=== PATIENT | male | born 1990 | race Caucasian/White ===

== ENCOUNTER 2017-03-17 09:25 | Inpatient (IN) | payer SELFPAY ==
--- NOTE | ~2017-03-17 | DS ---
Discharge Summary [facility] [address] [place]. [address] NAME: STEVE KERN : 89 STATUS : DIS IN PAT#: [id number] AGE: 27 ADM/REG DATE : 03/17/17 MR#: [id number] REPORT SERV DATE: 03/19/17 DICTATED BY: MARISELA LANDRUM DATE: 03/19/17 REPORT STATUS : Draft TRANSCRIBED BY: MODL DATE: 03/19/17 ADMISSION DATE: 03/17/2017 DISCHARGE DATE: 03/19/2017 TOURING PRODUCTION MANAGER: Shahid Ware D.D.S., sky cap. DISCHARGE DIAGNOSES: 1. Periodontal abscess with right-side facial cellulitis and dental caries. 2. Cigarette smoker. 3. Previous cholecystectomy. HISTORY: This patient has had approximately three weeks of gradually worsening right-sided mandibular periodontal pain and has had a number of visits to the emergency room near his home. He reportedly was given some oral antibiotics and occasional dose of IV antibiotics in the emergency room. He worsened and had a white count of 24,000, with significant swelling, and had a CT at the outside facility suggesting abscess, so was referred to our sky cap Team with Dr. Carnes accepting the patient. He was transferred here to our inpatient service. He was placed on antibiotics with Unasyn 3 g every 6 hours, Oral surgery Dr. Shahid Ware took him to the operating room on 03/17/2017, where he did an extraoral incision and drainage and extraction of teeth 28, 29, 30, 31, and 32. The patient's postop course was uncomplicated. He had reduced swelling and reduced pain. Dr. Ware had a drain in place and took it out on 03/19/2017, and stated he felt the patient could go home, and follow up with him in the office on the Saturday after discharge. The patient is eating soft food. He is ambulatory. No nausea. No vomiting. No fever. I told the patient and his that if he has recurrent pain like he did before especially with increased swelling, he should go to the emergency room again or call Dr. Ware, same if he had fever 101 or higher, and if he had a rash to go to the ER, or if he had severe diarrhea. The patient requests a work note which I provided indicating the days he was here and also indicating that he could start his new job on 03/26/2017. DISCHARGE MEDICATIONS: Nicotine patch 14 mg size [id number], Tylenol 650 q.4 hours p.r.n. mild pain, Percocet 10/325 q.i.d. p.r.n., intense pain #25 no refill, Augmentin 875 mg p.o. b.i.d. for five days take with meals, I spent 38 minutes today with the patient and his family in discharge plan. DICTATED BY: Marisela Landrum M.D. RSG/ELLIE Discharge Summary [address] [address] NAME: STEVE KERN : 89 STATUS : DIS IN PAT#: [id number] AGE: 27 ADM/REG DATE : 03/17/17 MR#: [id number] REPORT SERV DATE: 03/19/17 DICTATED BY: MARISELA LANDRUM DATE: 03/19/17 REPORT STATUS : Draft TRANSCRIBED BY: ELLIE DATE: 03/19/17 Marisela Landrum M.D. / [id number] CC: Stone Jain D.D.S.
--- NOTE | ~2017-03-17 | OP ---
Record Of Operation [facility] [address] [place]. [address] NAME: STEVE KERN : 89 STATUS : ADM IN [facility]#: [id number] AGE: 27 ADM/REG DATE : 03/17/17 MR#: [id number] REPORT SERV DATE: 03/17/17 DICTATED BY: SHAHID GARRIDO DATE: 03/17/17 REPORT STATUS : Draft TRANSCRIBED BY: MODL DATE: 03/17/17 DATE OF PROCEDURE: 03/17/2017 OPERATION COMPLETED: Extraoral incision and drainage and extraction of teeth #28, 29, 30, 31, and 32. PREOPERATIVE DIAGNOSIS: Cellulitis and abscess of face with secondary diagnosis of submandibular space abscess and dental caries. POSTOPERATIVE DIAGNOSIS: Cellulitis and abscess of face with secondary diagnosis of submandibular space abscess and dental caries. ANESTHESIA: General anesthesia via oral endotracheal intubation. DESCRIPTION OF PROCEDURE: The patient was taken to the operating room, where successful general anesthesia was induced via oral endotracheal intubation. The patient was prepped and draped in the usual manner for a combination intraoral and extraoral procedure. We initiated the procedure by placing a posterior pharyngeal pack and injecting the intraoral surgical sites using 0.5% Marcaine with epinephrine. This was to kitchen help handyman in hemostasis and postoperative discomfort. We first took a #9 [place] periosteal elevator and reflected a full- thickness mucoperiosteal flap surrounding tooth #28, 29, 30, 31, and 32. These teeth were then removed using dental elevators and forceps in the usual manner. There was spontaneous drainage of pus from the posterior aspect of the socket of tooth #32. We then went extraoral and made a 1 cm incision through the skin. Blunt dissection was used to track up to the submasseteric and submandibular areas where there were copious amounts of pus. We further explored the area and evacuated all the purulent matter. We then placed a quarter- inch [place] drain extending through the incision up to the site of the abscess. The drain was sutured using a 3-0 nylon suture. We then went intraorally and sutured the mucosa using 3-0 plain gut suture in an interrupted fashion. We then irrigated and rinsed the intraoral cavity out. We suctioned the intraoral cavity and removed the pharyngeal pack. The posterior pharynx was noted to be free of debris. We placed a 4 x 18 gauze in the right cheek to kitchen help handyman with hemostasis. We dressed the neck wound. The patient was then awakened, extubated, and taken to the recovery room in satisfactory condition. SUZETTE Shahid Garrido D.D.S. / [id number] CC: Brett Monson M.D.
--- NOTE | ~2017-03-17 | HP ---
History And Physical [place] [address] [facility] [place]. [address] NAME: STEVE KERN : 89 STATUS : ADM IN [facility]#: [id number] AGE: 27 ADM/REG DATE : 03/17/17 MR#: [id number] REPORT SERV DATE: 03/17/17 DICTATED BY: STEPHON MONSON DATE: 03/17/17 REPORT STATUS : Draft TRANSCRIBED BY: MODL DATE: 03/17/17 DATE OF ADMISSION: 03/17/2017 CHIEF COMPLAINT: Dental abscess. HISTORY OF PRESENT ILLNESS: The patient is an otherwise healthy 27-year-old male, who states his original symptoms began approximately three weeks ago. He states initially it was quite a bit smaller. He had had several ER visits for similar problem at the [facility]. He reports having been given p.o. and IV antibiotics on more than one occasion. He states despite this treatment, he continued to have pain and swelling increasing over that time. He presented to the emergency department again today at [facility] with increased pain, swelling, and a 24,000 white count. He was given Rocephin and clindamycin IV. After discussion with Dr. Ware Oral Maxillofacial Surgery in the CT at [place], he was transferred here for possible consideration of surgical treatment and drainage. The patient reports that he is able to swallow and manage his own secretions. He is in obvious pain and discomfort. PAST MEDICAL HISTORY: Otherwise, unremarkable. SURGICAL HISTORY: Reports cholecystectomy about eight years ago. CURRENT MEDICATIONS: He was taking ibuprofen 800 q.8, Percocet 5/325 q.4-6, and clindamycin t.i.d. ALLERGIES: NONE. FAMILY HISTORY: He reports both parents living without chronic health problems. SOCIAL HISTORY: He is a half pack per day smoker. No EtOH. REVIEW OF SYSTEMS: HEENT: Pain, swelling, right jaw. CARDIOVASCULAR: No chest pain, palpitations. PULMONARY: No shortness of breath, wheezing, or cough. GI: No nausea, vomiting. NEUROMUSCULOSKELETAL: Aside from his oral complaints are negative. SKIN: Without rashes. Otherwise, 10-point review of systems is negative. PHYSICAL EXAMINATION: VITAL SIGNS: Vital signs are currently pending. GENERAL: He is awake, alert, and oriented. HEENT: He has a large amount of swelling over the right angle of the jaw going into the cheek up toward the ear and down into the neck. NECK: Otherwise, supple. History And Physical [place] [address] [facility] [place]. [address] NAME: STEVE KERN : 89 STATUS : ADM IN [facility]#: [id number] AGE: 27 ADM/REG DATE : 03/17/17 MR#: [id number] REPORT SERV DATE: 03/17/17 DICTATED BY: STEPHON MONSON DATE: 03/17/17 REPORT STATUS : Draft TRANSCRIBED BY: MODL DATE: 03/17/17 HEART: Regular rate and rhythm. LUNGS: Clear to auscultation without rhonchi, rales, or wheezes. ABDOMEN: Thin, nontender, nondistended. EXTREMITIES: No clubbing, cyanosis, edema. SKIN: No obvious rash. LABORATORY DATA: As sent from [facility], white count 88847, H and H 13 and 538.8, platelets are 411, diff is 86, neutrophils 6 bands. C-reactive protein is 23. ASSESSMENT: Dental abscess. PLAN: 1. The patient has been admitted. 2. We will start IV antibiotics. 3. Dr. Ware, lock master will be notified of this admission consult. 4. BMP. 5. Reasonable pain and nausea medications. 6. Further recommendations pending above. WIL/ELLIE Stephon Monson M.D. / [id number] CC: Stephon Monson M.D.
[2017-03-17 12:00] LABS: A/G RATIO 0.8 (0.7-1.9); ALBUMIN 3.3 G/DL (3.5-5.0); ALKALINE PHOSPHATASE 85 U/L (45-117); BUN (BLOOD UREA NITROGEN) 6 MG/DL (6-23); CALCIUM, SERUM 9.1 MG/DL (8.5-10.4); CHLORIDE, SERUM 109 MMOL/L (96-112); CO2 (CARBON DIOXIDE) 18 MMOL/L (24-34); CREATININE 0.71 MG/DL (0.70-1.30); GFR AFRICAN AMERICAN 151 ML/MIN (>=60); GFR NON AFRICAN AMERICAN 130 ML/MIN (>=60); GLUCOSE, SERUM 99 MG/DL (60-99); POTASSIUM, SERUM 3.5 MMOL/L (3.5-5.3); SGOT(AST) 11 U/L (5-40); SGPT(ALT) 13 U/L (5-65); SODIUM, SERUM 139 MMOL/L (135-148); TOTAL BILIRUBIN 0.5 MG/DL (0-1.2); TOTAL PROTEIN 7.3 G/DL (6.0-8.5)
[2017-03-17] MEDS ORDERED: IBU800 PO (14:03)
[2017-03-18 05:26] LABS: BASOPHILS 0 %; BASOPHILS ABSOLUTE 0.01 10/3/uL (0.0-0.16); EOSINOPHILS 0 %; HEMATOCRIT 33.1 % (40.0-51.0); HEMOGLOBIN 11.5 g/dL (13.6-17.8); IMMATURE GRANULOCYTES 0.3 %; IMMATURE GRANULOCYTES ABSOLUTE 0.06 10/3/uL (0.0-0.11); INTERNATIONAL NORMAL RATI 1.2 UNITS (-); LYMPHOCYTES 8.5 %; LYMPHOCYTES ABSOLUTE 1.75 10/3/uL (0.67-4.30); MEAN CORPUS HGB CONC 34.7 g/dL (32.0-36.0); MEAN CORPUSCULAR HEMOGLOB 30.2 pg (26.0-34.0); MEAN CORPUSCULAR VOLUME 86.9 fL (80-100); MEAN PLATELET VOLUME 9.6 fL (9.2-13.0); MONOCYTES 9.6 %; MONOCYTES ABSOLUTE 1.96 10/3/uL (0.21-1.20); NEUTROPHILS 81.6 %; PLATELET COUNT 403 10/3/uL (150-400); PROTIME (NOT ORD) 15.2 SEC (12.0-14.5); RBC DISTRIBUTION WIDTH 13.6 % (12.0-16.0); RED CELL COUNT 3.81 10/6/uL (4.7-6.1); WHITE BLOOD CELLS 20.5 10/3/uL (4.5-10.5)
[2017-03-18 05:29] LABS: MANUAL DIFF NO %
[2017-03-18 05:42] LABS: BUN (BLOOD UREA NITROGEN) 7 MG/DL (6-23); CALCIUM, SERUM 8.8 MG/DL (8.5-10.4); CHLORIDE, SERUM 111 MMOL/L (96-112); CREATININE 0.67 MG/DL (0.70-1.30); GFR AFRICAN AMERICAN 155 ML/MIN (>=60); GFR NON AFRICAN AMERICAN 134 ML/MIN (>=60); POTASSIUM, SERUM 3.6 MMOL/L (3.5-5.3); SODIUM, SERUM 136 MMOL/L (135-148)
[2017-03-18 05:43] LABS: CO2 (CARBON DIOXIDE) 24 MMOL/L (24-34); GLUCOSE, SERUM 158 MG/DL (60-99)
[2017-03-19] MEDS ORDERED: AUG875 PO (08:12)
[2017-03-19] MEDS ORDERED: PERCOCET 10/3251 TAB PO (08:12)
== END 2017-03-19 11:45 | disposition home or self-care (01) | DRG 158 ==
LOC: 4SO 09:25
PROVIDERS: Internal Medicine; Oral & Maxillofacial Surgery
PROC: 0CDXXZ1 Extraction of Lower Tooth, Multiple, External Approach (ICD-10-PCS; principal; 2017-03-17 11:15)
DX: K04.7 Periapical abscess without sinus (principal); L03.211 Cellulitis of face; K12.2 Cellulitis and abscess of mouth; F17.210 Nicotine dependence, cigarettes, uncomplicated
CPT/HCPCS: 80048; 80053; 83735; 85025; 85610; 87015; 87040; 87070; 87075; 87102; 87116; 87205; A9270-GY; J0295; J1170; J1885; J2175; J2250; J2370; J2405; J2710; J3010